=== PATIENT | male | born 1970 | race Two or more races ===

== ENCOUNTER 2024-06-01 09:26 | Emergency (ER) | payer MEDICAID, SELFPAY ==
[2024-06-01 09:31] VITALS: BP 145/83; PULSE 98; RESP 19; TEMP 36.9; O2SAT 99; BMI 28.2
--- NOTE | 2024-06-01 09:52 | EDNOTE_ITS ---
ED Ear RME/HPI General Chief complaint: Ear Stated complaint: REALLY BAD RIGHT EAR PAIN X SATURDAY; MOTRIN 2100 Time Seen by Provider: 06/01/24 09:38 Source: patient Arrival date/time: 06/01/24 09:26 54-year-old male presents to the emergency department with complaints of right ear pain x 1 day. Patient noticed some greenish discharge draining. Patient did not attempt any interventions or take any OTC medications prior to ED visit. Patient denies any other associated symptoms or aggravating factors. No modifying factors, no radiation, no migration. Mode of arrival: ambulatory Related Data Home Medications ?Medication ?Instructions ?Recorded ?Confirmed hydrochlorothiazide 25 mg tablet 25 mg PO QAM #0 tabs 02/08/16 lisinopril 20 mg tablet 20 mg PO QDAY High Blood Pressure 02/08/16 #0 tabs Previous Rx's ?Medication ?Instructions ?Recorded Lisinopril 20 MG 1 tab PO daily #30 tabs 02/08/16 ibuprofen 800 mg tablet (IBU) 800 mg PO Q8H #20 tabs 06/01/24 ofloxacin 0.3 % ear drops 10 drp otic (ear) QDAY 7 days #10 06/01/24 mL Allergies Allergy/AdvReac Type Severity Reaction Status Date / Time NKA* Allergy Uncoded 06/01/24 09:28 Review of Systems Review of Systems Systems Reviewed: All systems reviewed, normal except as documented Narrative Review of Systems: Gen: No fever, no chills, no weight loss EYES: No discharge, no visual changes, no pain HEENT:++ rt ear pain, no congestion, no sore throat PULM: No shortness of breath, no cough, no congestion CV: No chest pain, no dyspnea on exertion, no palpitations GI: No nausea, no vomiting, no diarrhea, no pain, no constipation : No frequency, no urgency,? no dysuria Musc/skel: No joint pain, no back pain Skin: No rash? Psyc: No hallucinations, no depression Heme/Lymph: No easy bleeding or bruising tendencies Neuro: No weakness, no headache ED Exam Narrative Physical exam: General: Sittiing in Exam table in no acute distress, answering questions appropriately HENT: normocephalic, atraumatic,EOMI, PERRLA, moist mucous membranes, RT ear canal close, +grennish dc. Chest: chest wall is nontender Cardiac: regular rate and rhythm, normal S1 and S2, no murmurs, rubs, or gallops, capillary refill ?2 seconds Pulmonary: clear to auscultation bilaterally, no wheezing, crackles, or rhonchi Abdominal: active bowel sounds, soft, nontender, nondistended Neuro: A&OX3, CN II-XII intact, sensation grossly intact bilaterally in UE and LE. Skin: no rashes, no ecchymosis Ext: no lower extremity edema Course Quality Measures none Vital Signs Vital signs: Vital Signs Temperature 98.5 F 06/01/24 09:31 Pulse Rate 98 06/01/24 09:31 Respiratory Rate 19 06/01/24 09:31 Blood Pressure 145/83 H 06/01/24 09:31 Pulse Oximetry (%) 99 06/01/24 09:31 Oxygen Delivery Method Room Air 06/01/24 09:31 Ear Patient data External records reviewed:: [facility] previous records Clinical information provided by:: patient Social determinants that could affect healthcare access:: none Patient has the following chronic illnesses:: no How is presenting disease/condition affected by chronic disease/condition?: no chronic disease Evaluation data The following diagnostics were reviewed and interpreted by me:: other (specify) Lab and/or radiology exams considered but not ordered:: no Interpretation Summary: n/a Medications / Prescriptions Medications or Prescriptions considered but not ordered:: no Medication administrations:: no Consultations Consultation(s) initiated? (list below): No Diagnosis Ear Differential Diagnosis: otitis externa, otitis media, foreign body in ear, ruptured TM and cerumen impaction Most likely diagnosis given after review of the tests above:: Otitis externa Admission Indicated Admission indicated?: not indicated Admission Request Was there a request for admission?: No Disposition Plan Disposition Plan: Discharge Discharge Attestation Discharge Attestation: The patient and all family members were given an opportunity to ask questions and understood the discharge instructions. Discharge instructions specifically effects, indications for sooner follow up or return to the emergency department, and the expected course of current diagnosis. Patient condition: Stable Discharge Plan Plan Patient Disposition: HOME (Self Care) Patient condition on transfer: Stable Prescriptions/Referrals Prescriptions/Med Rec: New ofloxacin 0.3 % drops 10 drp otic (ear) QDAY 7 Days Qty: 10 0RF ibuprofen [IBU] 800 mg tablet 800 mg PO Q8H Qty: 20 0RF No Action lisinopril 20 MG tablet 20 mg PO QDAY Qty: 0 hydrochlorothiazide 25 MG tablet 25 mg PO QAM Qty: 0 Lisinopril 20 MG 1 tab PO daily Qty: 30 0RF Problem List Clinical Impression: Otitis externa Patient/Caregiver Discharge Instructions Education Materials: ED External Ear Infection (Adult) Additional Instructions: Please follow-up with your primary doctor clinic 2 to 3 days. Use antibiotics as soon as you receive them. The ear wick will fall out on its own. Return to the emergency department if there is any worsening symptoms change in condition. Print Language: Trinidadian Stand Alone Forms: Jessica Award Info., Patient Portal Info Letter Attestation Attestation The patient was seen by the midlevel practitioner. I, the co-signing physician, was present during the entire ER visit. While I did not physically examine the patient, I was available for consultation as needed.
== END 2024-06-01 12:52 | disposition home or self-care (01) ==
PROVIDERS: Emergency Provider Emergency Medicine
DX: H60.91 Unspecified otitis externa, right ear (principal)
CPT/HCPCS: 99281

== ENCOUNTER 2024-06-03 10:22 | Emergency (ER) | payer MEDICAID, SELFPAY ==
[2024-06-03 10:37] VITALS: BP 145/95; PULSE 64; RESP 16; TEMP 37.1; O2SAT 98; BMI 34.0
--- NOTE | 2024-06-03 10:44 | EDNOTE_ITS ---
ED Ear RME/HPI General Chief complaint: Ear Stated complaint: Right ear pain Time Seen by Provider: 06/03/24 10:28 Arrival date/time: 06/03/24 10:22 54-year-old male presents emergency department today stating he was recently diagnosed with right sided ear infection patient was given a prescription for antibiotic eardrops but reports that the ear canal is closed and he cannot get the eardrops and patient reports this has happened to him previously Limitations: no limitations Related Data Home Medications ?Medication ?Instructions ?Recorded ?Confirmed hydrochlorothiazide 25 mg tablet 25 mg PO QAM #0 tabs 02/08/16 lisinopril 20 mg tablet 20 mg PO QDAY High Blood Pressure 02/08/16 #0 tabs Previous Rx's ?Medication ?Instructions ?Recorded Lisinopril 20 MG 1 tab PO daily #30 tabs 02/08/16 ibuprofen 800 mg tablet (IBU) 800 mg PO Q8H #20 tabs 06/01/24 ofloxacin 0.3 % ear drops 10 drp otic (ear) QDAY 7 days #10 06/01/24 mL amoxicillin 875 mg-potassium 1 tab PO BID 10 days #20 tabs 06/03/24 clavulanate 125 mg tablet ibuprofen 800 mg tablet 800 mg PO TID PRN pain #30 tabs 06/03/24 Allergies Allergy/AdvReac Type Severity Reaction Status Date / Time NKA* Allergy Uncoded 06/01/24 09:28 Review of Systems Review of Systems Systems Reviewed: All systems reviewed, normal except as documented Constitutional Constitutional: Reports system reviewed and no additional complaints, except as documented, Denies fever(s) and Denies headache(s) Eyes Eyes: Reports system reviewed and no additional complaints, except as documented and Denies blurry vision ENT Ears, Nose, Mouth, and Throat: Reports system reviewed and no additional complaints, except as documented, Reports otalgia, Denies headache(s), Denies nasal congestion and Denies nasal discharge Cardiovascular Cardiovascular: Reports system reviewed and no additional complaints, except as documented, Denies chest pain and Denies dyspnea Respiratory Respiratory: Reports system reviewed and no additional complaints, except as documented, Denies chest congestion, Denies cough and Denies dyspnea Gastrointestinal Gastrointestinal: Reports system reviewed and no additional complaints, except as documented and Denies abdominal pain Integumentary/Breasts Skin/Breast: Reports system reviewed and no additional complaints, except as documented and Denies rash Neurologic Neurologic: Reports system reviewed and no additional complaints, except as documented, Reports as per HPI and Denies headache(s) Past Medical History Past Medical History NEUROLOGIC: Negative Neurological Disorders CARDIAC: Negative Cardiac Disorders ED Exam General Limitations: Present no limitations General appearance: Present alert and in no apparent distress Head Head exam: Present atraumatic Eye Eye exam: Present normal appearance, PERRL and EOMI ENT ENT exam: Present mucous membranes moist and other (Right ear pain) Neck Neck exam: Present normal inspection, full ROM and trachea midline Chest Chest inspection: Present normal inspection and symmetric chest wall rise Respiratory Respiratory exam: Present normal lung sounds bilaterally Cardiovascular Cardiovascular exam: Present regular rate, normal rhythm and normal heart sounds Abdominal Exam Abdominal exam: Present soft and normal bowel sounds Extremities Exam Extremities exam: Present normal inspection and full ROM Back Exam Back exam: Present normal inspection and full ROM Neurological Exam Neurological exam: Present alert, oriented X3 and CN II-XII intact Psychiatric Psychiatric exam: Present normal affect and normal mood Skin Skin exam: Present warm, dry, intact and normal color Course Quality Measures none Orders Category Date Time Status Lidocaine 1% 20 ml [Xylocaine 1% 20 ML] Med 06/03/24 10:40 Discontinued 2.1 ml INFL X1 ONE cefTRIAXone [Rocephin] Med 06/03/24 10:40 Discontinued 1,000 mg IM X1 ONE Vital Signs Vital signs: Vital Signs Temperature 98.8 F 06/03/24 10:37 Pulse Rate 64 06/03/24 10:37 Respiratory Rate 16 06/03/24 10:37 Blood Pressure 145/95 H 06/03/24 10:37 Pulse Oximetry (%) 98 06/03/24 10:37 Oxygen Delivery Method Room Air 06/03/24 10:37 O2 saturation 98% room air within normal limits Ear Patient data External records reviewed:: [facility] previous records Clinical information provided by:: patient Social determinants that could affect healthcare access:: none Patient has the following chronic illnesses:: See history How is presenting disease/condition affected by chronic disease/condition?: uneffected by Evaluation data The following diagnostics were reviewed and interpreted by me:: other (specify) (N/A) Lab and/or radiology exams considered but not ordered:: Consider not ordered Interpretation Summary: N/A Medications / Prescriptions Medications or Prescriptions considered but not ordered:: Given Medication administrations:: Medication Administration History Discontinued Medications Ceftriaxone Sodium (Ceftriaxone Sod Inj 1,000 Mg Vial) 1,000 mg IM X1 ONE Stop: 06/03/24 10:41 Last Admin: 06/03/24 10:57 Dose: 1,000 mg Documented By: ORI Lidocaine HCl (Lidocaine Hcl 1% 20 Ml Vial) 2.1 ml INFL X1 ONE Stop: 06/03/24 10:41 Last Admin: 06/03/24 10:57 Dose: 2.1 ml Documented By: MP Given Consultations Consultation(s) initiated? (list below): No Diagnosis Ear Differential Diagnosis: otitis externa and otitis media Most likely diagnosis given after review of the tests above:: Otitis externa Admission Indicated Admission indicated?: not indicated Admission Request Was there a request for admission?: No Disposition Plan Disposition Plan: Discharge Discharge Attestation Discharge Attestation: The patient and all family members were given an opportunity to ask questions and understood the discharge instructions. Discharge instructions specifically effects, indications for sooner follow up or return to the emergency department, and the expected course of current diagnosis. Patient condition: Stable Medical Decision Making MDM Narrative MDM Narrative: 54-year-old male presents emergency department today stating he was recently diagnosed with right sided ear infection patient was given a prescription for antibiotic eardrops but reports that the ear canal is closed and he cannot get the eardrops and patient reports this has happened to him previously On exam patient well-appearing patient is not appear toxic On exam patient has ear canal which is significantly narrowed Ear wick applied patient given a prescription for Augmentin as well Patient given Rocephin here Patient discharged home in no distress to follow-up with primary care doctor in the next 24 to 48 hours and for any worsening symptoms to return to the ER immediately Differential Diagnosis Differential Diagnosis: Otitis media, otitis externa, malignant otitis externa Medical Records Medical records reviewed: Yes I reviewed the patient's medical records. Discharge Plan Plan Patient Disposition: HOME (Self Care) Disposition Comment: Stable Prescriptions/Referrals Prescriptions/Med Rec: New ibuprofen 800 mg tablet 800 mg PO TID PRN (Reason: pain) Qty: 30 0RF amoxicillin-pot clavulanate 875-125 mg tablet 1 tab PO BID 10 Days Qty: 20 0RF No Action lisinopril 20 MG tablet 20 mg PO QDAY Qty: 0 hydrochlorothiazide 25 MG tablet 25 mg PO QAM Qty: 0 Lisinopril 20 MG 1 tab PO daily Qty: 30 0RF ofloxacin 0.3 % drops 10 drp otic (ear) QDAY 7 Days Qty: 10 0RF ibuprofen [IBU] 800 mg tablet 800 mg PO Q8H Qty: 20 0RF Problem List Clinical Impression: Otitis externa Patient/Caregiver Discharge Instructions Education Materials: Anatomy of the Ear Additional Instructions: Please follow up with your primary care doctor in the next 24-48hrs for any worsening symptoms return here immediately Print Language: Palestinian Stand Alone Forms: Jessica Award Info., Work/School Release, Patient Portal Info Letter PA/[employer] Supervising Physician PA/[employer] Supervising Physician: Dr Estrella
[2024-06-03] MEDS: LIDOCAINE HCL 1% 20 ML VIAL 2.1 ML INFL (10:57)
[2024-06-03] MEDS: cefTRIAXone SOD INJ 1,000 MG VIAL 1000 MG IM (10:57)
[2024-06-03 11:30] VITALS: BP 122/78; PULSE 62; RESP 17; TEMP 37.1; O2SAT 96
== END 2024-06-03 11:31 | disposition home or self-care (01) ==
LOC: SERX 11:35
PROVIDERS: Emergency Provider Emergency Medicine; PCP Physician Assistant
DX: H60.91 Unspecified otitis externa, right ear (principal)
CPT/HCPCS: 96372; 99283; J0696; J3490